=== PATIENT | female | born 1940 | race Caucasian/White ===

== ENCOUNTER 2016-09-13 09:00 | Inpatient (IN) | payer MEDICARE, BC ==
[~2016-09-13] VITALS: Ht 170.2 cm; Wt 65.1 kg
--- NOTE | ~2016-09-13 | DS ---
PATIENT'S NAME: JOYA ALVAREZ [facility] AGE: 75 Y [address] ROOM: [place] [address] LOCATION: [facility] ADMIT DATE: 09/26/2016 Discharge Summary DISCHARGE DATE: 09/28/2016 FAMILY PHYSICIAN: Abigail Ca PA-C ATTENDING PHYSICIAN: Randi Serna PRIMARY DIAGNOSIS: Osteoarthritis, right hip. SECONDARY DIAGNOSES: 1. Anxiety. 2. Hyperlipidemia. 3. History of tobacco use. PROCEDURE PERFORMED: Right total hip arthroplasty. HISTORY: The patient is a 75-year-old female, who presents with advanced right hip degenerative joint disease and associated severely compromised activities of daily living. The patient has decided to proceed with total right hip arthroplasty after having been thoroughly counseled regarding the risks, benefits, limitations and alternatives. Please refer to the outpatient clinic notes and admission history and physical for this patient. HOSPITAL COURSE: The patient underwent a total right hip arthroplasty on 09/26/2016 without complications. Spinal anesthesia was utilized. The patient received 24 hours of perioperative prophylactic antibiotics and remained hemodynamically stable, neurovascularly intact throughout the entire hospital course. The postoperative prophylactic deep venous thrombosis prophylaxis consisted of Xarelto, early mobilization and pneumatic compression devices. Daily physical therapy for gait training, transfer training, and reinforcement of hip dislocation precautions were received. The patient progressed well in physical therapy. On the date of discharge, 09/28/2016, the incision at the hip was healing well and showed no signs of infection. DISPOSITION: Home. DISCHARGE ACTIVITY: The patient is to bear weight as tolerated with strict hip dislocation precautions as instructed. There are to be no dressing changes. Dr. Serna is to be notified immediately if there is any increased pain, fevers, chills, erythema or drainage. DISCHARGE MEDICATIONS: 1. Xarelto 10 mg, take one tablet p.o. daily for DVT prevention, last dose is scheduled for October 08, 2016. 2. Oxycodone 5, take one tablet p.o. every 4 hours as needed for pain. PATIENT'S NAME: JOYA ALVAREZ [facility] AGE: 75 Y [address] ROOM: [place] [address] LOCATION: [facility] ADMIT DATE: 09/26/2016 Discharge Summary DISCHARGE DATE: 09/28/2016 FAMILY PHYSICIAN: Abigail Ca PA-C ATTENDING PHYSICIAN: Randi Serna FOLLOWUP: Followup appointment is to be with Dr. Serna on 10/04/2016 for initial postoperative evaluation. SHAHRAM WHEELER FOR RANDI SERNA MD TLB/modl /[id number] d: 10/04/16 0354 t: 10/11/16 1032, DISCHARGE SUMMARY
--- NOTE | ~2016-09-13 | OR ---
PATIENT'S NAME: GINNA ALVAREZ [facility] AGE: 75 Y [address] ROOM: [place] [address] LOCATION: [facility] ADMIT DATE: 09/26/2016 OR/Procedure Report DISCHARGE DATE: FAMILY PHYSICIAN: Abigail Ca PA-C ATTENDING PHYSICIAN: RANDI SERNA SURGEON: Randi Serna MD RESIDENTIAL SALES REP: 1. Jaskaran Contreras PA-C. 2. Alvaro Uriostegui CST/SCIENTIFIC ASSOCIATE. DATE OF PROCEDURE: 09/26/2016 PRE-OP DIAGNOSIS: Primary osteoarthritis, right hip. POST-OP DIAGNOSIS: Primary osteoarthritis, right hip. OPERATION: Right total hip arthroplasty. ANESTHESIA: Spinal anesthesia. ESTIMATED BLOOD LOSS: Approximately 250 mL. DRAIN: None. SPECIMEN: None. COMPLICATIONS: None. IMPLANTS: 1. [place] Trident titanium size 54-mm hemispherical acetabular shell with 1 dome hole cover and no screws. 2. [place] X3 neutral acetabular polyethylene liner with 36-mm inner diameter. 3. [place] Accolade II size 7, standard offset, uncemented femoral component. 4. 36 mm diameter metallic femoral head with +0 mm neck length. INDICATION FOR SURGERY: Ginna Alvarez is a 75-year-old female, who presents with advanced right hip primary osteoarthritis and associated severely compromised activities of daily living. The patient has decided to proceed with hip replacement after having been thoroughly counseled regarding the associated risks, benefits, and limitations. We have specifically reviewed the risks and implications of infection, deep venous thrombosis, pulmonary embolism, mortality, neurovascular complications, blood transfusion (and associated potential for disease transmission or transfusion reaction), stiffness, instability, leg length discrepancy, mechanical deterioration of the components (due to wear and to loosening), and the potential need for PATIENT'S NAME: GINNA ALVAREZ [facility] AGE: 75 Y [address] ROOM: [place] [address] LOCATION: [facility] ADMIT DATE: 09/26/2016 OR/Procedure Report DISCHARGE DATE: FAMILY PHYSICIAN: Abigail Ca PA-C ATTENDING PHYSICIAN: RANDI SERNA revision. DESCRIPTION OF PROCEDURE: The patient was positioned in a lateral decubitus position with the right side up after administration of anesthesia and prophylactic antibiotics. An axillary roll was placed and the non-operative leg was well padded. The pelvis was locked perpendicularly to the floor on a pegboard. The right hip and entire operative extremity were prepped and draped with vigilant sterile technique. The patient's name as well as the intended operative side and procedure were confirmed with a verbal time-out involving myself, the circulating nurse, the scrub nurse, and the anesthesiologist. The right hip was approached through a standard posterolateral incision. The fascia gokul and the gluteus sae fascia were sharply divided in line with the overlying skin incision. The sciatic nerve was identified and was vigilantly protected throughout the entire case. The short external rotators and posterior capsule were divided from their respective femoral insertions and tagged with four #1 Ethibond sutures for later repair. The hip was posteriorly dislocated with combined flexion, adduction, and internal rotation. The femoral neck osteotomy was performed with an oscillating saw. Inspection of the femoral head demonstrated a 1 x 3 cm osteophyte at its posterior inferior margin. There was full-thickness loss of articular cartilage throughout its weightbearing surface. There was no femoral head collapse. Circumferential acetabular exposure was obtained. Inspection of the acetabulum demonstrated no dysplasia. There was full- thickness loss of articular cartilage involving 90% of its weightbearing surface. There was a small medial acetabular osteophyte. There was no dysplasia. There was a moderate effusion consisting of benign-appearing translucent synovial fluid. There was mild synovitis. Remnants of the acetabular labrum were sharply thoroughly excised. The acetabulum was sequentially progressively reamed up to 53 mm with hemispherical power reamers. The final acetabular shell was impacted into position in 20 degrees of anteversion and 45 degrees of inclination. An excellent press-fit was obtained. No supplemental dome screw fixation was necessary. A neutral trial liner was inserted. Attention was next focused upon femoral preparation. The femoral canal initiator was utilized. No reaming was performed (except for with a canal finder). The patient was moderately osteopenic. The femoral canal was subsequently sequentially progressively broached up to a size 6 (initially). However, we subsequently broached up to a size 7 when the size 6 initial implant was not stable to axial and rotational stability. Final broaching was PATIENT'S NAME: GINNA ALVAREZ [facility] AGE: 75 Y [address] ROOM: [id number] [place], [place] [address] LOCATION: [facility] ADMIT DATE: 09/26/2016 OR/Procedure Report DISCHARGE DATE: FAMILY PHYSICIAN: Abigail Ca PA-C ATTENDING PHYSICIAN: RANDI SERNA to a size 7. The 6 broach obtained excellent axial and rotational stability. Trial reductions with the above specified construct yielded acceptable stability and acceptable reproduction of leg length and offset. All trial components were removed. The final acetabular liner was inserted with excellent circumferential visualization of its locking mechanism to assure adequate deployment. The final femoral component was impacted into position. The femoral component achieved excellent axial and rotational stability. The trunnion of the femoral component was vigilantly protected prior to placement of the femoral head. The trunnion of the femoral component was thoroughly cleaned and dried prior to placement of the femoral head. The incision was thoroughly irrigated with bacteriostatic pulsatile saline lavage multiple times throughout the case. The entire joint space was thoroughly inspected and thoroughly irrigated to assure that there was no residual debris of any sort. A final reduction was then performed. After final reduction, the hip could be firmly externally rotated in full extension and zero degrees of abduction without anterior subluxation. In neutral rotation and zero degrees of abduction, the hip could be firmly flexed to 120 degrees without instability. At 90 degrees of flexion and zero degrees abduction, the hip could be internally rotated to 70 degrees before there was any hint of posterior subluxation. The posterior capsule and short external rotators were repaired through two drill holes in the posterior aspect of the greater trochanter. The fascia gokul and gluteus sae fascia were closed with multiple simple and [id number] interrupted # 1 Ethibond and #1 Vicryl sutures. Subcutaneous tissues were thoroughly re-irrigated with bacteriostatic pulsatile saline lavage. Subcutaneous tissues were re-approximated with simple buried interrupted #0 Vicryl sutures. The skin was closed with superficial buried interrupted 2-0 Vicryl sutures followed by a running subcuticular 3-0 Monocryl suture, followed by Octylseal, followed by Steri- Strips with benzoin, followed by an occlusive Mepilex dressing. There were no intra-operative complications. It should be noted that the physician's public relations assistant played an active, integral role throughout this entire operation. By providing expert retraction, they greatly facilitated and expedited safe and effective exposure of the proximal femur and acetabulum for preparation and implantation of the components. They were also actively involved in the patient's positioning, prepping and draping, as well as wound closure. PATIENT'S NAME: GINNA ALVAREZ [facility] AGE: 75 Y [address] ROOM: [address] [address] LOCATION: [facility] ADMIT DATE: 09/26/2016 OR/Procedure Report DISCHARGE DATE: FAMILY PHYSICIAN: Abigail Ca PA-C ATTENDING PHYSICIAN: RANDI SERNA MD MADELIN SILVERMAN/raymond /[id number] d: 09/26/16 1756 t: 09/27/16 2115, OPERATIVE SUMMARY
[2016-09-13] MEDS ORDERED: ASPIRIN EC81 MG PO (09:03)
[2016-09-13] MEDS ORDERED: CALCIUM 600 +1 EA12 PO (09:04)
[2016-09-13] MEDS ORDERED: XANAX0.5 MG PO (09:04)
[2016-09-13] MEDS ORDERED: ULTRAM50 MG PO (09:04)
[2016-09-13] MEDS ORDERED: VITAMIN C500 M1 PO (09:05)
[2016-09-13] MEDS ORDERED: FLAX SEED OIL1000 MG PO (09:05)
[2016-09-13] MEDS ORDERED: CENTRUM SILVER1 TAB PO (09:05)
[2016-09-13] MEDS ORDERED: FISH OIL 1,0001 EAC3 PO (09:06)
[2016-09-13] MEDS ORDERED: LUTEIN10 MG PO (09:06)
--- NOTE | 2016-09-26 14:01 | NUR ---
Introduced self to pt. Instructed her to do 100 ankle pumps/hours and 10 breaths/hour using the Incentive Spirometer. She plans to go home after dismissal, has all necessary equipment.
--- NOTE | 2016-09-26 14:19 | NUR ---
Significant Event: Came up from PACU at 1145. CSM WNL. VSS. Up with 1 assist to bedside commode. Up in chair. Ice to R) hip. Mepilex dressing is C/D/I. Roxicodone given at 1300 for anticipated pain. Vitals Q4hrs strating after 1830. Follow up:
--- NOTE | 2016-09-27 01:56 | NUR ---
Significant Event: Dressing is clean, dry and intact. CSM WNL. Voids without difficulty. 1 assist with transfers. Last Roxicodone at 2307. On room air. Follow up:
--- NOTE | 2016-09-27 10:31 | NUR ---
[id number] [facility], monitored assessments, documentation and medication administration
--- NOTE | 2016-09-27 12:38 | NUR ---
Introduced self and CM role to patient and son whom was at beside. Patient plans to return back to her home in [place], [place] when discharged. She stated she has a walker, cane, cost consultant, bath seat, and other DME to assit her at home. Pt is a and lives home alone, but son stated he will be staying with her for a short period and lives close. She also voiced she has friends available nearby to help her if she needed it. No needs or concerns at this time. Wrote name on marker board, and told pt to contact us if she were to think of anything she may end up needing. Plan to discharge tomorrow. 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
--- NOTE | 2016-09-27 19:22 | NUR ---
Significant Event: UP TO BR. SAT IN RECLINER. CSM GOOD, HAD ROXICODONE 5 MG 1 TAD X3 LAST [id number]. DRSG D/I TO HIP ICE ON... Follow up:
--- NOTE | 2016-09-28 03:17 | NUR ---
Significant Event: A&O X3. VSS. On room air. Mepilex dressing to R) hip is CDI. CSM WNL. Hip precautions explained and discussed. No BM this shift. Up to bathroom with SBA. Roxicodone last given at 0135, plan to give again prior to change of shift. Follow up: Plans to discharge home today.
--- NOTE | 2016-09-28 10:05 | NUR ---
[id number] [facility] Nursing Students, monitored assessment, documentation and medication administration
[2016-09-28] MEDS ORDERED: TYLENOL EXTRA500 MG PO (10:48)
[2016-09-28] MEDS ORDERED: MIRALAX17 GM PO (10:50)
[2016-09-28] MEDS ORDERED: COLACE100 MG PO (10:51)
[2016-09-28] MEDS ORDERED: ROXICODONE 5MG (5 MG PO (10:52)
[2016-09-28] MEDS ORDERED: XARELTO10 MG PO (10:55)
--- NOTE | 2016-09-28 19:55 | NUR ---
Patient left floor in wheelchair at approximately 1515 -discharge to home. VSS on RA. BENNY's dc'd with no complications.
== END 2016-09-28 15:15 | disposition disaster alternative care site (69) | DRG 470 ==
LOC: G3N 09-26 06:11
PROVIDERS: ADMIT Orthopaedic Surgery
PROC: 0SR902A Replacement of Right Hip Joint with Metal on Polyethylene Synthetic Substitute, Uncemented, Open Approach (ICD-10-PCS; principal; 2016-09-26)
DX: M16.11 Unilateral primary osteoarthritis, right hip (principal); E78.5 Hyperlipidemia, unspecified; Z86.69 Personal history of other diseases of the nervous system and sense organs; Z87.01 Personal history of pneumonia (recurrent); Z79.82 Long term (current) use of aspirin; F17.210 Nicotine dependence, cigarettes, uncomplicated; F41.9 Anxiety disorder, unspecified
CPT/HCPCS: C1776; J0690; J1100; J1885; J2001; J2795; J7030; J7120